=== PATIENT | male | born 1965 | race Two or more races ===

== ENCOUNTER 2020-12-16 19:49 | Inpatient (IN) | payer MEDICAID, SELFPAY ==
--- NOTE | 2020-12-16 19:57 | ED_ITS ---
HPI - General Adult General Chief complaint: General Medical Stated complaint: HYPERGLYCEMIA Time Seen by Provider: 12/16/20 19:56 Source: patient and family Mode of arrival: ambulatory Limitations: no limitations History of Present Illness HPI narrative: Patient diabetic noncompliant to his Lantus insulin in the ev ening suppose to take 30 units every day but he take only 3 times a week, on metformin 1000 mg twice daily.for last few days feeling weak urinating a lot tired went to see primary care doctor in the clinic today and blood sugar measured above 550. Patient denied any chest pain abdominal pain no nausea no vomiting no diarrhea patient does not have glucometer at home and does not check his sugar noncompliant to diet and does no exercise Related Data Home Medications Medication Instructions Recorded Confirmed albuterol sulfate 3 ml INHALATION Q4H PRN 12/16/20 12/16/20 albuterol sulfate [ProAir HFA] 2 puff INHALATION QID PRN 12/16/20 12/16/20 amlodipine 1 tab PO DAILY 12/16/20 12/16/20 aspirin 1 tab PO DAILY 12/16/20 12/16/20 cholecalciferol (vitamin D3) 1 cap PO DAILY 12/16/20 12/16/20 [Vitamin D3] lisinopril 1 tab PO DAILY 12/16/20 12/16/20 metformin 1 tab PO BID 12/16/20 12/16/20 omeprazole 1 cap PO DAILY 12/16/20 12/16/20 Allergies Allergy/AdvReac Type Severity Reaction Status Date / Time No Known Allergies Allergy Verified 12/16/20 20:20 Review of Systems Review of Systems: Constitutional : No Weight loss, No Fever, No Chills ENT/Mouth : No sore throat, No Rhinorrhea Eyes: No Eye Pain, No Swelling Cardiovascular : No Chest Pain, no palpitations Respiratory : No Cough, No Sputum, no shortness of breath Gastrointestinal : no Nausea, No Vomiting, No Diarrhea, No abdominal Pain, no black stools Genitourinary : No Dysuria, No Urinary Frequency Musculoskeletal : No joint pain, No Myalgias, No Joint Swelling Skin : No Skin Lesions, No rash Neuro : ++Weakness, No Numbness, No Dizziness, No Headache Psych : No Anxiety/Panic, No Depression Heme/Lymph: No Bruising, No Lymphadenopathy Endocrine : No Polyuria, No Polydipsia All other systems reviewed and are negative PMFSH Past Medical History Medical History Diabetes mellitus Surgical History No history of previous surgery Social History Social History Smoking Status: Current every day smoker Use of substances other than those prescribed or required for medical reasons: No Advance Directives: No Advance Directives Information Provided: Yes Physical Exam Vital Signs: Vital Signs: Last Vital Signs Temp 98.5 F 12/16/20 22:30 Pulse 107 H 12/17/20 00:58 Resp 13 12/17/20 00:58 BP 130/74 12/17/20 00:58 Pulse Ox 98 12/17/20 00:58 Body Mass Index 32.6 Appearance: Alert. Oriented X3. No acute distress. Eyes: Pupils equal, round and reactive to light. ENT: Pharynx normal. Oral mucosa dry Neck: Normal inspection. Neck supple. CVS: Normal heart rate and rhythm. Pulses normal. Respiratory: No respiratory distress. Breath sounds normal. Abdomen: Soft and nontender. Bowel sounds are present, no mass palpable, no CVA tenderness Skin: Skin warm and dry. Normal skin color. Normal skin turgor. Extremities: No lower extremity edema. Neuro: Oriented X 3. No motor deficit. No sensory deficit. Medical Decision Making MDM Narrative Medical decision making narrative: Patient diabetic with poor compliance came with increased blood sugar of 776 with acute renal failure creatinine increased from 1.27 in 09/16 to 3.96 now will give IV fluids insulin , plan to admit for acute renal failure with hyperglycemia Repeat chemistries pending patient received 2 L of fluid and insulin Chemistry improved with anion gap of 17 sodium 132 blood sugar 465, last blood sugar was 432 Will give 10 units of Humalog patient admitted to the medical floor Lab Data Lab results reviewed: Yes I reviewed the patient's lab results. Result diagrams: 12/16/20 20:33 12/17/20 01:15 Labs: Lab Results 12/16/20 12/16/20 12/16/20 Range/Units 20:09 20:33 20:33 WBC 9.3 (4.8-10.8) X10*3/uL RBC 4.78 (4.60-5.80) X10*6/uL Hgb 13.6 L (14.0-18.0) g/dl Hct 39.3 L (42-52) % MCV 82.2 (80-98) fL MCH 28.5 (27.0-33.0) pg MCHC 34.6 (31.0-36.0) g/dl RDW 13.3 (11.0-16.0) % Plt Count 170 (160-400) X10*3/uL MPV 11.7 (9.4-12.4) fL Immature Gran % (Auto) 0.2 (0.0-0.4) % Neut % (Auto) 86.7 H (45-73) % Lymph % (Auto) 8.1 L (20-40) % [place] % (Auto) 4.1 (2-11) % Eos % (Auto) 0.5 (0-4) % Baso % (Auto) 0.4 (0-2) % Lymph # (Auto) 0.8 L (1.2-4.9) X10*3/uL [place] # (Auto) 0.4 (0.1-1.2) X10*3/uL Eos # (Auto) 0.1 (0.0-0.4) X10*3/uL Baso # (Auto) 0.0 (0.0-0.2) X10*3/uL Abs Immat Gran (auto) 0.02 (0.00-0.03) X10*3/uL Absolute Neuts (auto) 8.1 (2.0-8.3) X10*3/uL Absolute Nucleated RBC 0.000 (0.0-0.012) X10*3/uL Nucleated RBC % (auto) 0.0 (0.0-0.2) /100WBC Sodium (135-145) mmol/L Potassium (3.3-5.1) mmol/L Chloride (96-108) mmol/L Carbon Dioxide (22-29) mmol/L Anion Gap (12-20) BUN (9-16) mg/dL Creatinine (0.5-1.4) mg/dL Estim Creat Clear Calc Estimated GFR POC Glucose > 600 H* (60-115) mg/dL Random Glucose (60-115) mg/dL Calcium (8.4-10.2) mg/dL Total Bilirubin (0.0-1.0) mg/dL Direct Bilirubin (0.0-0.5) mg/dL AST (5-37) U/L ALT (0-40) U/L Alkaline Phosphatase (39-117) U/L Total Protein (6.5-8.0) g/dL Albumin (3.5-5.0) g/dL Acetone, Qual Small H (Negative) 12/16/20 12/16/20 Range/Units 20:33 22:14 WBC (4.8-10.8) X10*3/uL RBC (4.60-5.80) X10*6/uL Hgb (14.0-18.0) g/dl Hct (42-52) % MCV (80-98) fL MCH (27.0-33.0) pg MCHC (31.0-36.0) g/dl RDW (11.0-16.0) % Plt Count (160-400) X10*3/uL MPV (9.4-12.4) fL Immature Gran % (Auto) (0.0-0.4) % Neut % (Auto) (45-73) % Lymph % (Auto) (20-40) % [place] % (Auto) (2-11) % Eos % (Auto) (0-4) % Baso % (Auto) (0-2) % Lymph # (Auto) (1.2-4.9) X10*3/uL [place] # (Auto) (0.1-1.2) X10*3/uL Eos # (Auto) (0.0-0.4) X10*3/uL Baso # (Auto) (0.0-0.2) X10*3/uL Abs Immat Gran (auto) (0.00-0.03) X10*3/uL Absolute Neuts (auto) (2.0-8.3) X10*3/uL Absolute Nucleated RBC (0.0-0.012) X10*3/uL Nucleated RBC % (auto) (0.0-0.2) /100WBC Sodium 122 L (135-145) mmol/L Potassium 5.7 H (3.3-5.1) mmol/L Chloride 90 L (96-108) mmol/L Carbon Dioxide 18 L (22-29) mmol/L Anion Gap 20 (12-20) BUN 72 H (9-16) mg/dL Creatinine 3.96 H (0.5-1.4) mg/dL Estim Creat Clear Calc 24.6 Estimated GFR 16 POC Glucose > 600 H* (60-115) mg/dL Random Glucose 776 H* (60-115) mg/dL Calcium 9.8 (8.4-10.2) mg/dL Total Bilirubin 1.5 H (0.0-1.0) mg/dL Direct Bilirubin 0.6 H (0.0-0.5) mg/dL AST 44 H (5-37) U/L ALT 73 H (0-40) U/L Alkaline Phosphatase 113 (39-117) U/L Total Protein 8.8 H (6.5-8.0) g/dL Albumin 4.4 (3.5-5.0) g/dL Acetone, Qual (Negative) Discharge Plan Discharge Clinical Impression: Hyperglycemia due to type 2 diabetes mellitus Qualifiers: Diabetes mellitus supervisor intermediates insulin use: with supervisor intermediates use Qualified Code(s): E11.65 - Type 2 diabetes mellitus with hyperglycemia Acute renal failure superimposed on chronic kidney disease Qualifiers: Acute renal failure type: unspecified Chronic kidney disease stage: stage 4 (severe) Qualified Code(s): N17.9 - Acute kidney failure, unspecified Patient Disposition: Admitted As Inpatient
--- NOTE | 2020-12-16 20:00 | ECG_ITS ---
Test Reason : HYPERGLYCEMIA Blood Pressure : / mmHG Vent. Rate : 093 BPM Atrial Rate : 093 BPM P-R Int : 120 ms QRS Dur : 096 ms QT Int : 342 ms P-R-T Axes : 055 -17 041 degrees QTc Int : 425 ms Normal sinus rhythm Possible inferior infarct Abnormal ECG When compared with ECG of 25-AUG-2016 03:00, No significant change was found Referred By: Efrem Thompson Electronically Signed By:Bipin Grove
[2020-12-16 20:11] VITALS: BP 115/59; BP 96/64; PULSE 95; PULSE 98; RESP 15; TEMP 36; O2SAT 96; O2SAT 99; BMI 32.6
[2020-12-16] MEDS: 0.9 % Sodium Chloride 1,000 ML 999 ML IVCONT ×2 (20:30→22:42)
[2020-12-16 20:38] VITALS: BP 115/59; PULSE 95; RESP 15; TEMP 36.4; O2SAT 99
[2020-12-16 20:38] LABS: Glucose, Whole Blood > 600 mg/dL (60-115)
[2020-12-16 20:40] LABS: Basophils Percent Auto 0.4 % (0-2); Eosinophils Absolute Auto 0.1 X10*3/uL (0.0-0.4); Eosinophils Percent Auto 0.5 % (0-4); Hematocrit 39.3 % (42-52); Hemoglobin 13.6 g/dl (14.0-18.0); Imm Gran Abs Auto 0.02 X10*3/uL (0.00-0.03); Imm Gran Pct Auto 0.2 % (0.0-0.4); Lymphocytes Absolute Auto 0.8 X10*3/uL (1.2-4.9); Lymphocytes Percent Auto 8.1 % (20-40); MANUAL DIFF FLAG NO; Mean Corpuscular HGB Conc 34.6 g/dl (31.0-36.0); Mean Corpuscular Hemoglobin 28.5 pg (27.0-33.0); Mean Corpuscular Volume 82.2 fL (80-98); Mean Platelet Volume 11.7 fL (9.4-12.4); Monocytes Absolute Auto 0.4 X10*3/uL (0.1-1.2); Monocytes Percent Auto 4.1 % (2-11); Neutrophils Absolute Auto 8.1 X10*3/uL (2.0-8.3); Neutrophils Percent Auto 86.7 % (45-73); Platelet Count 170 X10*3/uL (160-400); Red Blood Count 4.78 X10*6/uL (4.60-5.80); Red Cell Distribution Width 13.3 % (11.0-16.0); White Blood Count 9.3 X10*3/uL (4.8-10.8)
[2020-12-16] MEDS: Insulin Lispro 100 UNIT/ML 3 ML VIAL 14 UNIT SUBCUT (21:06)
[2020-12-16 21:20] LABS: Acetone, serum QL Small (Negative)
[2020-12-16 21:24] LABS: Alanine Aminotransferase 73 U/L (0-40); Albumin Level 4.4 g/dL (3.5-5.0); Alkaline Phosphatase 113 U/L (39-117); Anion Gap 20 (12-20); Aspartate Amino Transferase 44 U/L (5-37); Bilirubin Direct 0.6 mg/dL (0.0-0.5); Bilirubin Total 1.5 mg/dL (0.0-1.0); Blood Urea Nitrogen 72 mg/dL (9-16); Calcium 9.8 mg/dL (8.4-10.2); Carbon Dioxide 18 mmol/L (22-29); Chloride 90 mmol/L (96-108); Creatinine Clr Calc Pharmacy 24.6; Estimated Glomerular Filt Rate 16; Glucose Random 776 mg/dL (60-115); Potassium 5.7 mmol/L (3.3-5.1); Sodium 122 mmol/L (135-145); Total Protein 8.8 g/dL (6.5-8.0)
[2020-12-16 22:26] LABS: Glucose, Whole Blood > 600 mg/dL (60-115)
[2020-12-16 22:30] VITALS: BP 128/72; PULSE 108; RESP 14; TEMP 36.9; O2SAT 97
[2020-12-16] MEDS: Insulin Regular, Human 100 UNIT/ML 3 ML VIAL 10 UNIT IVPUSH (22:49)
[2020-12-16] MEDS: ondansetron HCL 4 MG/2 ML VIAL IVPUSH (22:49)
[2020-12-16] MEDS: Insulin Glargine,Hum.rec.anlog 100 UNIT/ML 10 ML VIAL 30 UNIT SUBCUT (22:50)
[2020-12-17 00:58] VITALS: BP 130/74; PULSE 107; RESP 13; O2SAT 98
[2020-12-17 01:44] LABS: Glucose, Whole Blood 432 mg/dL (60-115)
[2020-12-17 01:55] LABS: Glucose Random 465 mg/dL (60-115)
[2020-12-17 02:01] LABS: Anion Gap 17 (12-20); Blood Urea Nitrogen 65 mg/dL (9-16); Calcium 9.3 mg/dL (8.4-10.2); Carbon Dioxide 19 mmol/L (22-29); Chloride 101 mmol/L (96-108); Creatinine Clr Calc Pharmacy 31.7; Estimated Glomerular Filt Rate 21; Potassium 5.3 mmol/L (3.3-5.1); Sodium 132 mmol/L (135-145)
[2020-12-17] MEDS: Heparin Sodium,Porcine 5,000 UNIT/ML VIAL 5000 UNIT SUBCUT ×2 (02:48→12:50)
[2020-12-17] MEDS: Insulin Regular, Human 100 UNIT/ML 3 ML VIAL 10 UNIT IVPUSH (02:48)
--- NOTE | 2020-12-17 02:50 | PC.NURSE ---
Patient resting in his bed with daughter at the bedside. R insulin administration delayed because order needed to be clarified with hospitalist as there were two orders.
[2020-12-17 02:52] LABS: COVID-19 Test Negative (Negative)
[2020-12-17] MEDS: Insulin Lispro 100 UNIT/ML 3 ML VIAL 10 UNIT SUBCUT (03:22)
[2020-12-17 04:07] LABS: Glucose, Whole Blood 314 mg/dL (60-115)
[2020-12-17] MEDS: Lactated Ringers 500 ML 1000 ML IVCONT (04:25)
--- NOTE | 2020-12-17 06:08 | P.HPHOSP_ITS ---
History of Present Illness Date of Service: 12/17/20 Chief Complaint: not feeling well Citizen [place]-speaking only. History obtained with history of his daughter at bedside 55-year-old male with past medical history of diabetes, hypertension, GERD, arthritis, asthma who presents to the hospital with complaints of not feeling well for for 5 days, low appetite, increase urinary frequency and feeling thirsty all the time. Patient has diabetes and is on Lantus and metformin but reports that he does not take his Lantus consistently because he is lazy and forgets but he takes metformin 1000 mg b.i.d. consistently. He denies any headache, change in vision, no chest pain shortness of breath, no diarrhea constipation, no abdominal pain. No urinary symptoms other than the frequency, and no lower extremity edema. No numbness or tingling. Vitals on arrival unremarkable Labs on arrival showed WBC count of 9.3, hemoglobin of 13.6, hematocrit 39.3, corrected sodium of 136, potassium of 5.7, anion gap 20, BUN of 72, creatinine of 3.96 with a baseline around 1.27 from August of 2019, glucose of 776, bili of 1.5, AST of 44, ALT of 73, small amount of acetone. COVID-19 negative Past medical history as below and confirmed with patient and his daughter at bedside Review of Systems Review of Systems: Yes all other systems are reviewed and are negative [facility] Medical History Asthma Diabetes mellitus GERD (gastroesophageal reflux disease) Hypertension Functional capacity: independent ambulation Surgical History No history of previous surgery Social History Smoking Status: Current every day smoker Use of substances other than those prescribed or required for medical reasons: No Advance Directives: No Advance Directives Information Provided: Yes Meds Allergies Allergy/AdvReac Type Severity Reaction Status Date / Time No Known Allergies Allergy Verified 12/16/20 20:20 Active Medications: Current Medications Generic Name Dose Route Start Last Admin Trade Name Freq PRN Reason Stop Dose Admin Acetaminophen 650 mg 12/17/20 00:58 Acetaminophen 325 Mg Tablet PO Q6H PRN Pain, Mild (Pain Scale 1-3) Albuterol Sulfate 2.5 mg 12/17/20 00:58 Albuterol Sulfate (0.083%) 2.5 Mg/3 Ml Vial.Neb INHALE Q4H PRN wheezing Albuterol Sulfate 2 puff 12/17/20 00:58 Albuterol Sulfate 90 Mcg 8 Gm Inhaler INHALE QID PRN Shortness Of Breath Or Wheezing Amlodipine Besylate 5 mg 12/17/20 09:00 Amlodipine Besylate 5 Mg Tablet PO DAILY [facility] Protocol Aspirin 81 mg 12/17/20 09:00 Aspirin Enteric Coated 81 Mg Tablet. PO DAILY [facility] Docusate Sodium 100 mg 12/17/20 00:58 Docusate Sodium 100 Mg Capsule PO DAILY PRN Constipation Heparin Sodium (Porcine) 5,000 unit 12/17/20 00:58 12/17/20 02:48 Heparin Sodium,Porcine 5,000 Unit/Ml Vial SUBCUT 5,000 unit Q12H [facility] Administration Insulin Human Lispro 0 unit 12/17/20 07:30 Insulin Lispro 100 Unit/Ml 3 Ml Vial SUBCUT QIDACHS [facility] Protocol Lisinopril 40 mg 12/17/20 09:00 Lisinopril 40 Mg Tablet PO DAILY [facility] Protocol Omeprazole 20 mg 12/17/20 09:00 Omeprazole 20 Mg Capsule. PO DAILY [facility] Ondansetron HCl 4 mg 12/17/20 00:58 Ondansetron Hcl 4 Mg/2 Ml Vial IVPUSH Q8H PRN Nausea and Vomiting Sodium Chloride 3 ml 12/17/20 08:00 0.9 % Sodium Chloride Flush 3 M[facility] Vitamin D 50 mcg 12/17/20 09:00 Cholecalciferol (Vitamin D3) 25 Mcg Tablet PO DAILY [facility] Home Medications Medication Instructions Recorded Confirmed Last Taken Type albuterol sulfate 3 ml INHALATION Q4H PRN 12/16/20 12/16/20 Unknown History albuterol sulfate [ProAir HFA] 2 puff INHALATION QID PRN 12/16/20 12/16/20 Unknown History amlodipine 1 tab PO DAILY 12/16/20 12/16/20 Unknown History aspirin 1 tab PO DAILY 12/16/20 12/16/20 Unknown History cholecalciferol (vitamin D3) 1 cap PO DAILY 12/16/20 12/16/20 Unknown History [Vitamin D3] lisinopril 1 tab PO DAILY 12/16/20 12/16/20 Unknown History metformin 1 tab PO BID 12/16/20 12/16/20 Unknown History omeprazole 1 cap PO DAILY 12/16/20 12/16/20 Unknown History Physical Exam Vital Signs and Narrative: Vital Signs: Last Vital Signs Temp 98.5 F 12/16/20 22:30 Pulse 107 H 12/17/20 00:58 Resp 13 12/17/20 00:58 BP 130/74 12/17/20 00:58 Pulse Ox 98 12/17/20 00:58 Body Mass Index 32.6 Const: General: cooperative and no acute distress Orientation/consciousness: patient oriented x3 Eyes: General: appearance normal, both eyes and all related structures Resp: Effort & Inspection: normal respiratory effort and able to speak in complete sentences Cardio: Rate: regular rate Rhythm: regular rhythm GI: Palpation (GI): Soft to palpation Auscultation: normal bowel sounds Skin: General skin exam: no rashes or lesions noted Neuro: General: patient oriented x3 Cognition (Neuro): normal cognition Extrem: General: Yes normal to inspection and Yes no pedal edema Results Labs CBC and Chem 7: 12/16/20 20:33 12/17/20 01:15 Labs: Laboratory Results - last 24 hr 12/16/20 12/16/20 12/16/20 20:09 20:33 20:33 MCV 82.2 MCH 28.5 MCHC 34.6 RDW 13.3 Plt Count 170 MPV 11.7 Immature Gran % (Auto) 0.2 Neut % (Auto) 86.7 H Lymph % (Auto) 8.1 L [place] % (Auto) 4.1 Eos % (Auto) 0.5 Baso % (Auto) 0.4 Lymph # (Auto) 0.8 L [place] # (Auto) 0.4 Eos # (Auto) 0.1 Baso # (Auto) 0.0 Abs Immat Gran (auto) 0.02 Absolute Neuts (auto) 8.1 Absolute Nucleated RBC 0.000 Nucleated RBC % (auto) 0.0 Anion Gap Estim Creat Clear Calc Estimated GFR POC Glucose > 600 H* Random Glucose Calcium Total Bilirubin Direct Bilirubin AST ALT Alkaline Phosphatase Total Protein Albumin Acetone, Qual Small H COVID-19 ([facility]ODRIGO) COVID-19 Clin Com 04/12/16/20 12/17/20 20:33 22:14 01:15 MCV MCH MCHC RDW Plt Count MPV Immature Gran % (Auto) Neut % (Auto) Lymph % (Auto) [place] % (Auto) Eos % (Auto) Baso % (Auto) Lymph # (Auto) [place] # (Auto) Eos # (Auto) Baso # (Auto) Abs Immat Gran (auto) Absolute Neuts (auto) Absolute Nucleated RBC Nucleated RBC % (auto) Anion Gap 20 17 Estim Creat Clear Calc 24.6 31.7 Estimated GFR 16 21 POC Glucose > 600 H* Random Glucose 776 H* TNP Calcium 9.8 9.3 Total Bilirubin 1.5 H Direct Bilirubin 0.6 H AST 44 H ALT 73 H Alkaline Phosphatase 113 Total Protein 8.8 H Albumin 4.4 Acetone, Qual COVID-19 ([facility]IGO) COVID-19 Clin Com 12/17/20 12/17/20 12/17/20 01:15 01:41 02:22 MCV MCH MCHC RDW Plt Count MPV Immature Gran % (Auto) Neut % (Auto) Lymph % (Auto) [place] % (Auto) Eos % (Auto) Baso % (Auto) Lymph # (Auto) [place] # (Auto) Eos # (Auto) Baso # (Auto) Abs Immat Gran (auto) Absolute Neuts (auto) Absolute Nucleated RBC Nucleated RBC % (auto) Anion Gap Estim Creat Clear Calc Estimated GFR POC Glucose 432 H* Random Glucose 465 H* Calcium Total Bilirubin Direct Bilirubin AST ALT Alkaline Phosphatase Total Protein Albumin Acetone, Qual COVID-19 (RODRIGO) Negative COVID-19 Clin Com See Note 12/17/20 04:00 MCV MCH MCHC RDW Plt Count MPV Immature Gran % (Auto) Neut % (Auto) Lymph % (Auto) [place] % (Auto) Eos % (Auto) Baso % (Auto) Lymph # (Auto) [place] # (Auto) Eos # (Auto) Baso # (Auto) Abs Immat Gran (auto) Absolute Neuts (auto) Absolute Nucleated RBC Nucleated RBC % (auto) Anion Gap Estim Creat Clear Calc Estimated GFR POC Glucose 314 H Random Glucose Calcium Total Bilirubin Direct Bilirubin AST ALT Alkaline Phosphatase Total Protein Albumin Acetone, Qual COVID-19 ([facility]ODRIGO) COVID-19 Clin Com Assessment and Plan (1) Hyperglycemia due to type 2 diabetes mellitus: Qualifiers: Diabetes mellitus longterm insulin use: with longterm use Qualified Code(s): E11.65 - Type 2 diabetes mellitus with hyperglycemia; Z79.4 - correction (current) use of insulin Status: Acute (2) Acute renal failure superimposed on chronic kidney disease: Qualifiers: Acute renal failure type: unspecified Chronic kidney disease stage: stage 4 (severe) Qualified Code(s): N17.9 - Acute kidney failure, unspecified; N18.4 - Chronic kidney disease, stage 4 (severe) Status: Acute 55-year-old male with past medical history of diabetes and hypertension presents to the hospital with hyperglycemia # hyperglycemia secondary to poorly controlled diabetes mellitus - presents with a glucose of 700s - no DKA, mild HHS - patient responded to subcu an IV insulin - patient on 20 units of insulin Lantus at bedtime but has been noncompliant - on metformin 1000 mg b.i.d. at home - at this time will start him on his home Lantus of 20 mg at bedtime - obtain hemoglobin A1c - low-dose sliding scale insulin - diabetic diet # Doni on CKD - most likely dehydration as well as progression of his kidney disease secondary to uncontrolled diabetes - will start on IV fluids - diabetic diet # hypertension - stable - continue amlodipine and lisinopril # asthma - no exacerbation - continue home inhalers # GERD - continue omeprazole DVT prophylaxis: heparin Subq
[2020-12-17 06:42] LABS: Glucose, Whole Blood 173 mg/dL (60-115)
--- NOTE | 2020-12-17 06:50 | PC.NURSE ---
Patient's blood sugar was 173 this am. Hospitalist notified of results.
[2020-12-17] MEDS: Lactated Ringers 1,000 ML 100 ML IVCONT (07:35)
[2020-12-17 07:36] VITALS: BP 130/74; BP 135/74; PULSE 100; PULSE 107
[2020-12-17] MEDS: Aspirin Enteric Coated 81 MG TABLET.DR PO (07:36)
[2020-12-17] MEDS: lisinopriL 40 MG TABLET PO (07:36)
[2020-12-17] MEDS: Cholecalciferol (Vitamin D3) 25 MCG TABLET 50 MCG PO (07:36)
[2020-12-17] MEDS: amLODIPine Besylate 5 MG TABLET PO (07:36)
[2020-12-17 07:37] LABS: Glucose, Whole Blood > 600 mg/dL (60-115)
[2020-12-17 07:37] LABS: Glucose, Whole Blood > 600 mg/dL (60-115)
[2020-12-17] MEDS: Omeprazole 20 MG CAPSULE.DR PO (07:37)
[2020-12-17] MEDS: Insulin Lispro 100 UNIT/ML 3 ML VIAL SUBCUT ×4 (07:37→21:11)
[2020-12-17] MEDS: 0.9 % Sodium Chloride 1,000 ML 999 ML IVCONT (07:50)
[2020-12-17 09:59] LABS: Hemoglobin A1c % > 14.0 %
[2020-12-17 11:46] LABS: Glucose, Whole Blood 172 mg/dL (60-115)
--- NOTE | 2020-12-17 13:14 | MHC.CM.PN ---
Met with patient and historic interpreter in regards to discharge planning. Patient lives with his son and daughter, ambulates independently and had no services prior to coming to the hospital. Patient still drives. No services anticipated to be needed because patient is not homebound. PCP verified. Patient denies having a HCP. Information provided. Patient not interested in completing one at this time. Patient's daughter will transport him home when medically stable. Continue to monitor for d/c needs.
--- NOTE | 2020-12-17 14:45 | PC.NURSE ---
PT NEEDS BEING MET, TOLERATING PO. AMB TO BR WITH STEADY GAIT, WAITING ON ADMISSION BED
[2020-12-17 16:06] VITALS: BP 120/80; PULSE 84; RESP 14; O2SAT 99
[2020-12-17] MEDS: 0.9 % Sodium Chloride Flush 3 ML SYRINGE IVFLUSH ×2 (16:06→21:12)
[2020-12-17 16:37] LABS: Anion Gap 13 (12-20); Blood Urea Nitrogen 47 mg/dL (9-16); Calcium 9.3 mg/dL (8.4-10.2); Carbon Dioxide 21 mmol/L (22-29); Chloride 107 mmol/L (96-108); Estimated Glomerular Filt Rate 31; Glucose Random 277 mg/dL (60-115); Potassium 5.2 mmol/L (3.3-5.1); Sodium 136 mmol/L (135-145)
[2020-12-17 17:27] LABS: Glucose, Whole Blood 261 mg/dL (60-115)
[2020-12-17 19:33] VITALS: BP 158/82; PULSE 79; RESP 16; TEMP 36; O2SAT 99
[2020-12-17 20:21] LABS: Glucose, Whole Blood 271 mg/dL (60-115)
[2020-12-17] MEDS: Insulin Glargine,Hum.rec.anlog 100 UNIT/ML 10 ML VIAL 20 UNIT SUBCUT (21:11)
[2020-12-17 23:30] VITALS: BP 153/81; PULSE 81; RESP 20; TEMP 36.9; O2SAT 98
[2020-12-18] MEDS: Heparin Sodium,Porcine 5,000 UNIT/ML VIAL 5000 UNIT SUBCUT ×2 (00:26→11:48)
[2020-12-18 04:00] VITALS: BP 154/80; PULSE 69; RESP 20; TEMP 36.8; O2SAT 97
[2020-12-18 06:38] LABS: MANUAL DIFF FLAG NO
[2020-12-18 07:02] LABS: Basophils Percent Auto 0.7 % (0-2); Eosinophils Absolute Auto 0.1 X10*3/uL (0.0-0.4); Eosinophils Percent Auto 1.9 % (0-4); Hematocrit 36.9 % (42-52); Hemoglobin 12.5 g/dl (14.0-18.0); Imm Gran Abs Auto 0.01 X10*3/uL (0.00-0.03); Imm Gran Pct Auto 0.2 % (0.0-0.4); Lymphocytes Absolute Auto 1.4 X10*3/uL (1.2-4.9); Lymphocytes Percent Auto 23.2 % (20-40); Mean Corpuscular HGB Conc 33.9 g/dl (31.0-36.0); Mean Corpuscular Hemoglobin 28.2 pg (27.0-33.0); Mean Corpuscular Volume 83.1 fL (80-98); Mean Platelet Volume 11.2 fL (9.4-12.4); Monocytes Absolute Auto 0.3 X10*3/uL (0.1-1.2); Monocytes Percent Auto 4.6 % (2-11); Neutrophils Absolute Auto 4.1 X10*3/uL (2.0-8.3); Neutrophils Percent Auto 69.4 % (45-73); Platelet Count 167 X10*3/uL (160-400); Red Blood Count 4.44 X10*6/uL (4.60-5.80); Red Cell Distribution Width 13.5 % (11.0-16.0); White Blood Count 5.9 X10*3/uL (4.8-10.8)
[2020-12-18 07:20] LABS: Anion Gap 14 (12-20); Blood Urea Nitrogen 37 mg/dL (9-16); Calcium 9.5 mg/dL (8.4-10.2); Carbon Dioxide 19 mmol/L (22-29); Chloride 107 mmol/L (96-108); Creatinine Clr Calc Pharmacy 52.9; Estimated Glomerular Filt Rate 38; Glucose Random 236 mg/dL (60-115); Potassium 4.7 mmol/L (3.3-5.1); Sodium 135 mmol/L (135-145)
[2020-12-18 07:22] VITALS: BP 139/85; PULSE 75; RESP 18; TEMP 36.7; O2SAT 97
[2020-12-18] MEDS: Cholecalciferol (Vitamin D3) 25 MCG TABLET 50 MCG PO (07:54)
[2020-12-18] MEDS: amLODIPine Besylate 5 MG TABLET PO (07:54)
[2020-12-18] MEDS: 0.9 % Sodium Chloride Flush 3 ML SYRINGE IVFLUSH ×2 (07:54→16:13)
[2020-12-18] MEDS: lisinopriL 40 MG TABLET PO (07:54)
[2020-12-18] MEDS: Aspirin Enteric Coated 81 MG TABLET.DR PO (07:54)
[2020-12-18] MEDS: Omeprazole 20 MG CAPSULE.DR PO (07:54)
[2020-12-18] MEDS: Insulin Lispro 100 UNIT/ML 3 ML VIAL SUBCUT ×4 (07:54→21:34)
[2020-12-18 08:27] LABS: Glucose, Whole Blood 221 mg/dL (60-115)
--- NOTE | 2020-12-18 10:15 | P.PNIM_ITS ---
Subjective Subjective Date of Service: 12/18/20 Interval History: Seen in f/u for DONI, uncontrolled diabetes, better, Blood sugars have trended down and renal function is better Review of Systems Gen: no fever Resp: no sob, no cough CV: no chest, no GABRIEL, no leg edema GI: No n/v, no abd pain Neuro: No confusion Physical Exam Vital Signs: Vital Signs: Last Vital Signs Temp 98.0 F 12/18/20 07:22 Pulse 75 12/18/20 07:22 Resp 18 12/18/20 07:22 BP 139/85 12/18/20 07:22 Pulse Ox 97 12/18/20 07:22 Body Mass Index 32.6 Const: General: cooperative and no acute distress Orientation/consciousness : patient oriented x3 Eyes: General: appearance normal, both eyes and all related structures Resp: Effort & Inspection: normal respiratory effort and able to speak in complete sentences Cardio: Rate: regular rate Rhythm: regular rhythm GI: Palpation (GI): Soft to palpation Auscultation: normal bowel sounds Skin: General skin exam: no rashes or lesions noted Neuro: General: patient oriented x3 Cognition (Neuro): normal cognition Extrem: General: Yes normal to inspection and Yes no pedal edema Objective Data Current Medications Generic Name Dose Route Start Last Admin Trade Name Freq PRN Reason Stop Dose Admin Acetaminophen 650 mg 12/17/20 00:58 Acetaminophen 325 Mg Tablet PO Q6H PRN Pain, Mild (Pain Scale 1-3) Albuterol Sulfate 2.5 mg 12/17/20 00:58 Albuterol Sulfate (0.083%) 2.5 Mg/3 Ml Vial.Neb INHALE Q4H PRN wheezing Albuterol Sulfate 2 puff 12/17/20 00:58 Albuterol Sulfate 90 Mcg 8 Gm Inhaler INHALE QID PRN Shortness Of Breath Or Wheezing Amlodipine Besylate 5 mg 12/17/20 09:00 12/18/20 07:54 Amlodipine Besylate 5 Mg Tablet PO 5 mg DAILY [facility] Administration Protocol Aspirin 81 mg 12/17/20 09:00 12/18/20 07:54 Aspirin Enteric Coated 81 Mg Tablet. PO 81 mg DAILY [facility] Administration Docusate Sodium 100 mg 12/17/20 00:58 Docusate Sodium 100 Mg Capsule PO DAILY PRN Constipation Heparin Sodium (Porcine) 5,000 unit 12/17/20 00:58 12/18/20 00:26 Heparin Sodium,Porcine 5,000 Unit/Ml Vial SUBCUT 5,000 unit Q12H [facility] Administration Insulin Glargine 20 unit 12/17/20 21:00 12/17/20 21:11 Insulin Glargine,Hum.Rec.Anlog 100 Unit/Ml 10 Ml Vial SUBCUT 20 unit BEDTIME [facility] Administration Insulin Human Lispro 0 unit 12/17/20 07:30 12/18/20 07:54 Insulin Lispro 100 Unit/Ml 3 Ml Vial SUBCUT 4 unit QIDACHS [facility] Administration Protocol Lisinopril 40 mg 12/17/20 09:00 12/18/20 07:54 Lisinopril 40 Mg Tablet PO 40 mg DAILY [facility] Administration Protocol Omeprazole 20 mg 12/17/20 09:00 12/18/20 07:54 Omeprazole 20 Mg Capsule. PO 20 mg DAILY [facility] Administration Ondansetron HCl 4 mg 12/17/20 00:58 Ondansetron Hcl 4 Mg/2 Ml Vial IVPUSH Q8H PRN Nausea and Vomiting Sodium Chloride 3 ml 12/17/20 08:00 12/18/20 07:54 0.9 % Sodium Chloride Flush 3 Ml Syringe IVFLUSH 3 ml QSHIFT [facility] Administration Vitamin D 50 mcg 12/17/20 09:00 12/18/20 07:54 Cholecalciferol (Vitamin D3) 25 Mcg Tablet PO 50 mcg DAILY [facility] Administration Labs CBC & Chem 7: 12/18/20 06:28 12/18/20 06:28 Assessment and Plan (1) Hyperglycemia due to type 2 diabetes mellitus: Status: Acute (2) Acute renal failure superimposed on chronic kidney disease: Status: Acute Assessment and Plan: 55-year-old male with past medical history of diabetes and hypertension presents to the hospital with hyperglycemia # Hyperglycemia/uncontrolled diabetes without DKA--sugars are better -Hgb A1c >14 -Continue SSI -Increase Lantus to 30 tonight -Diabetes and Nutrition education -Hold Metformin until renal function is normal - diabetic diet # Doni on CKD 2, Creatinie is better -continue IVF and reacheck Cr tomorrow # hypertension - stable - continue amlodipine and lisinopril # asthma - no exacerbation - continue home inhalers # GERD - continue omeprazole DVT prophylaxis: heparin Subq Home tomorrow
[2020-12-18 11:26] VITALS: BP 134/79; PULSE 76; RESP 18; TEMP 36.7; O2SAT 97
[2020-12-18 12:05] LABS: Glucose, Whole Blood 272 mg/dL (60-115)
[2020-12-18 15:48] VITALS: BP 142/80; PULSE 70; RESP 18; TEMP 36.4; O2SAT 98
[2020-12-18 16:15] LABS: Glucose, Whole Blood 206 mg/dL (60-115)
[2020-12-18] MEDS: Nicotine Polacrilex 2 MG GUM BUCCAL (16:30)
[2020-12-18 19:28] VITALS: BP 136/70; PULSE 75; RESP 16; TEMP 36; O2SAT 100
[2020-12-18 20:41] LABS: Glucose, Whole Blood 222 mg/dL (60-115)
[2020-12-18] MEDS: Insulin Glargine,Hum.rec.anlog 100 UNIT/ML 10 ML VIAL 20 UNIT SUBCUT (21:34)
[2020-12-18 23:22] VITALS: BP 120/77; PULSE 85; RESP 18; TEMP 36.3; O2SAT 100
[2020-12-19] MEDS: 0.9 % Sodium Chloride Flush 3 ML SYRINGE IVFLUSH ×3 (00:43→17:10)
[2020-12-19] MEDS: Heparin Sodium,Porcine 5,000 UNIT/ML VIAL 5000 UNIT SUBCUT ×2 (01:44→14:40)
[2020-12-19 03:42] VITALS: BP 165/91; PULSE 68; RESP 16; TEMP 36.5; O2SAT 97
[2020-12-19 07:33] VITALS: BP 122/79; PULSE 79; RESP 17; TEMP 36.1; O2SAT 98
[2020-12-19 07:54] LABS: Glucose, Whole Blood 198 mg/dL (60-115)
[2020-12-19] MEDS: Aspirin Enteric Coated 81 MG TABLET.DR PO (08:17)
[2020-12-19] MEDS: Cholecalciferol (Vitamin D3) 25 MCG TABLET 50 MCG PO (08:17)
[2020-12-19] MEDS: Omeprazole 20 MG CAPSULE.DR PO (08:18)
[2020-12-19 08:19] VITALS: BP 122/79; PULSE 79
[2020-12-19] MEDS: lisinopriL 40 MG TABLET PO (08:19)
[2020-12-19] MEDS: amLODIPine Besylate 5 MG TABLET PO (08:19)
[2020-12-19] MEDS: Insulin Lispro 100 UNIT/ML 3 ML VIAL SUBCUT ×3 (08:21→17:09)
--- NOTE | 2020-12-19 10:18 | PM.DS ---
DS: Providers Provider Date of Service: 12/29/20 Date of admission: 12/17/20 00:38 Primary care physician: [facility] DS: Diagnosis Discharge Diagnosis (1) Hyperglycemia due to type 2 diabetes mellitus: Status: Acute (2) Acute renal failure superimposed on chronic kidney disease: Status: Acute DS: Medications Discharge Medications Home Medications: Home Medications Medication Instructions Recorded Confirmed albuterol sulfate 3 ml INHALATION Q4H PRN 12/16/20 12/16/20 albuterol sulfate [ProAir HFA] 2 puff INHALATION QID PRN 12/16/20 12/16/20 amlodipine 1 tab PO DAILY 12/16/20 12/16/20 aspirin 1 tab PO DAILY 12/16/20 12/16/20 cholecalciferol (vitamin D3) 1 cap PO DAILY 12/16/20 12/16/20 [Vitamin D3] lisinopril 1 tab PO DAILY 12/16/20 12/16/20 metformin 1 tab PO BIDAC 12/16/20 12/17/20 omeprazole 1 cap PO DAILY 12/16/20 12/16/20 insulin glargine [Lantus Solostar 30 unit SUBCUT BEDTIME 12/17/20 12/17/20 U-100 Insulin] DS: Summary Hospital Course Hospital Course: Chief Complaint: not feeling well Wallisian-speaking only. History obtained with history of his daughter at bedside 55-year-old male with past medical history of diabetes, hypertension, GERD, arthritis, asthma who presents to the hospital with complaints of not feeling well for for 5 days, low appetite, increase urinary frequency and feeling thirsty all the time. Patient has diabetes and is on Lantus and metformin but reports that he does not take his Lantus consistently because he is lazy and forgets but he takes metformin 1000 mg b.i.d. consistently. He denies any headache, change in vision, no chest pain shortness of breath, no diarrhea constipation, no abdominal pain. No urinary symptoms other than the frequency, and no lower extremity edema. No numbness or tingling. Vitals on arrival unremarkable Labs on arrival showed WBC count of 9.3, hemoglobin of 13.6, hematocrit 39.3, corrected sodium of 136, potassium of 5.7, anion gap 20, BUN of 72, creatinine of 3.96 with a baseline around 1.27 from August of 2019, glucose of 776, bili of 1.5, AST of 44, ALT of 73, small amount of acetone. COVID-19 negative Hospital coruse: He presented with not feeling good and not being consitent with his insulin and other medication, and had decrease apetite and decrease water intake. Labs showed high potassium of 5.7, Creatinine of 3.96 and glucose over 776. He was agresivelly hydrated starting from emergency room to treat acute renal failure and hyperglycemia. He required insulin for hyperglycemia. Ultimately his sugar levels have come down presently at 261. His renal function has improved, creatinine is presently ? He does have underlying CKD 2, and last labs date back last year. Creatinine seems to have stablized aroud 1.8, even with use of Lisinopril. Patient is advised that he must be compliant with his medication, particulary insulin and to check blood sugars before meals and at bedtime, to stick with diabetic diet and follow PCP. To stop taking Metformin and Sliding scale insulin added. His daughter confirmed that he has all his medication at home and need renewal for Lisinopril and inhlaers. Will repeat BMP in a week Time Spent with Patient Time attestation: Total time spent providing and/or coordinating discharge services: Discharge coordination time: Greater than 30 minutes Physical Exam Vital Signs: Vital Signs: Last Vital Signs Temp 96.9 F 12/19/20 07:33 Pulse 79 12/19/20 08:19 Resp 17 12/19/20 07:33 BP 122/79 12/19/20 08:19 Pulse Ox 98 12/19/20 07:33 Body Mass Index 32.6 General: AO X 3, no acute distress Resp: CTA bilateral CVS: S1,S2,RRR GI: +BS, NT, no distention Skin: No rash Neuro: motor grossly intact Psych: appropriate affect DS: Data Data Completed and Pending Labs on day of discharge: Laboratory Results - last 24 hr 12/18/20 12/18/20 12/18/20 11:25 16:11 20:36 POC Glucose 272 H 206 H 222 H 12/19/20 07:35 POC Glucose 198 H Discharge Plan Discharge Anticipated Discharge Date/Time: 12/19/20 10:12 Patient Disposition: Home, Self-Care Discharge Diagnosis: Acute renal failure, and uncontrolled diabetes Referrals: [facility] [Primary Care Provider] - 1 Week Discharge Medications: New insulin lispro [Humalog KwikPen Insulin] 100 unit/mL insulin pen See Protocol unit subcut QIDACHS Qty: 15 RF: 0 (DME) pen needle, diabetic [BD Eliz 2nd Gen Pen Needle] 32 gauge x 5/32 needle See Rx Instructions .ROUTE .MEDSUPPLY Qty: 100 RF: 0 (DME) blood-glucose meter [FreeStyle Lite Meter] Kit See Rx Instructions .ROUTE .MEDSUPPLY Qty: 1 RF: 0 (DME) FreeStyle Lite Strips Strip See Rx Instructions .ROUTE .MEDSUPPLY Qty: 100 RF: 0 (DME) lancets [1st Tier Unilet ComforTouch] 28 gauge misc See Rx Instructions .ROUTE .MEDSUPPLY Qty: 100 RF: 0 Continued amlodipine 5 mg tablet 1 tab PO DAILY RF: 0 aspirin 81 mg tablet,delayed release (DR/EC) 1 tab PO DAILY RF: 0 omeprazole 20 mg capsule,delayed release(DR/EC) 1 cap PO DAILY RF: 0 cholecalciferol (vitamin D3) [Vitamin D3] 50 mcg (2,000 unit) capsule 1 cap PO DAILY RF: 0 Lantus Solostar U-100 Insulin 100 unit/mL (3 mL) insulin pen 30 unit subcut BEDTIME RF: 0 albuterol sulfate 2.5 mg /3 mL (0.083 %) solution for nebulization 3 ml inhalation Q4H PRN (Reason: wheezing) Qty: 60 RF: 0 albuterol sulfate [ProAir HFA] 90 mcg/actuation HFA aerosol inhaler 2 puff inhalation QID PRN (Reason: Shortness Of Breath Or Wheezing) Qty: 1 RF: 0 lisinopril 40 mg tablet 1 tab PO DAILY Qty: 30 RF: 0 Discontinued metformin 500 mg tablet 1 tab PO BIDAC RF: 0 Discharge Orders: Discharge Order (Routine); Ordered 12/19/20 Ordered By: Lopez Fuentes Diet: advance to usual diet and diabetic diet Activity on Discharge: As tolerated Stand Alone Forms: Patient Portal Discharge page Print Language: Malawian Other Ambulatory Orders: Basic Metabolic Panel (Routine) Timeframe: 1 Week Facility: [facility] - Location: Laboratory Ordered By: Lopez Fuentes Care Plan Goals: Diabetes management and prevent hospitalization Health Concerns: Diabetes and its potential complications., renal failure Plan of Treatment: To take insulin and all other medication as directed and follow up with her primary care doctor. Do not take metformin anymore insulin correction scale *Less than or equal to 110 ---- Give (units): 0 *111 to 150 Give (units): 0 *151 to 200 Give (units): 2 *201 to 250 Give (units): 4 *251 to 300 Give (units): 6 *301 to 350 Give (units): 8 *Greater than 350 Give (units): 10 *Call MD if Blood Glucose > : 350 Assessment: Uncontrolled diabetes, renal failure Discharge Date/Time: 12/19/20 18:08
[2020-12-19 11:12] VITALS: BP 129/76; PULSE 79; RESP 18; TEMP 36.2; O2SAT 98
[2020-12-19 11:46] LABS: Glucose, Whole Blood 285 mg/dL (60-115)
[2020-12-19 12:24] LABS: Anion Gap 15 (12-20); Blood Urea Nitrogen 29 mg/dL (9-16); Calcium 10.2 mg/dL (8.4-10.2); Carbon Dioxide 23 mmol/L (22-29); Chloride 102 mmol/L (96-108); Creatinine Clr Calc Pharmacy 52.9; Estimated Glomerular Filt Rate 38; Glucose Random 317 mg/dL (60-115); Potassium 4.8 mmol/L (3.3-5.1); Sodium 135 mmol/L (135-145)
[2020-12-19 15:21] VITALS: BP 116/71; PULSE 80; RESP 16; TEMP 36; O2SAT 96
--- NOTE | 2020-12-19 15:58 | MHC.CM.PN ---
Addendum entered by Radha Waldron RN 12/19/20 16:13: CM CONTACTED PT'S DAUGHTER BELKIS NEAL AT 4:05PM TO FIND OUT IF PT HAD A GLUCOMETER, LANCETS AND TEST STRIPS, PER DAUGHTER PT NO LONGER HAS A GLUCOMETER OR SUPPLIES, INFO FOR FREESTYLE GLUCOMETER KIT, TEST STRIPS AND LANCETS GIVEN TO HOSPITALIST. Original Note: PT DISCHARGING TODAY, HOME SELF-CARE W/NEW SLIDING SCALE INSULIN, PT ON LANTUS SOLASTAR PEN, INFO GIVEN TO HOSPITALIST FOR HUMALOG KWIKPEN U-100, 3ML PEN AND BD MARIO 2ND GEN PEN NEEDLES 4MM/32 GAUGE 4XDAY 1 BOX PER PT PHARMACY ON FILE. DAUGHTER TO TRANSPORT.
[2020-12-19 16:36] LABS: Glucose, Whole Blood 250 mg/dL (60-115)
== END 2020-12-19 18:08 | disposition home or self-care (01) | DRG 420 ==
LOC: HO.ED 20:16 → HO.EDOVER 12-17 00:56 → HO.S3 12-17 18:23
PROVIDERS: Admitting Provider Internal Medicine; Emergency Provider Internal Medicine; Visit Provider Internal Medicine
DX: E11.65 Type 2 diabetes mellitus with hyperglycemia (principal); N17.9 Acute kidney failure, unspecified; E11.22 Type 2 diabetes mellitus with diabetic chronic kidney disease; N18.4 Chronic kidney disease, stage 4 (severe); T38.3X6A Underdosing of insulin and oral hypoglycemic [antidiabetic] drugs, initial encounter; Z91.138 Patient's unintentional underdosing of medication regimen for other reason; Y92.9 Unspecified place or not applicable; E86.0 Dehydration; F17.210 Nicotine dependence, cigarettes, uncomplicated; J45.909 Unspecified asthma, uncomplicated; K21.9 Gastro-esophageal reflux disease without esophagitis; Z20.822 Contact with and (suspected) exposure to COVID-19; I12.9 Hypertensive chronic kidney disease with stage 1 through stage 4 chronic kidney disease, or unspecified chronic kidney disease; Z71.6 Tobacco abuse counseling; Z79.4 Long term (current) use of insulin; Z91.14 Patient's other noncompliance with medication regimen; Z79.82 Long term (current) use of aspirin; Z79.899 Other long term (current) drug therapy
CPT/HCPCS: 36415; 80048; 80076; 82009; 82947; 83036; 85025; 87635; 93005; 96372; 96374; 96375; 99285; J2405

== ENCOUNTER 2021-12-31 12:47 | Outpatient (REF) | payer MEDICAID, SELFPAY ==
[2021-12-31 14:49] LABS: Alanine Aminotransferase 38 U/L (0-40); Albumin Level 4.2 g/dL (3.5-5.0); Alkaline Phosphatase 144 U/L (39-117); Anion Gap 12 (12-20); Aspartate Amino Transferase 25 U/L (5-37); Bilirubin Total 0.6 mg/dL (0.0-1.0); Blood Urea Nitrogen 18 mg/dL (9-16); Calcium 9.7 mg/dL (8.4-10.2); Carbon Dioxide 24 mmol/L (22-29); Chloride 108 mmol/L (96-108); Estimated Glomerular Filt Rate > 60; Glucose Random 199 mg/dL (60-115); Potassium 4.3 mmol/L (3.3-5.1); Sodium 140 mmol/L (135-145)
[2021-12-31 15:00] LABS: Hemoglobin 13.3 g/dl (14.0-18.0); Mean Corpuscular HGB Conc 33.3 g/dl (31.0-36.0); Mean Corpuscular Hemoglobin 28.1 pg (27.0-33.0); Mean Corpuscular Volume 84.6 fL (80.0-98.0); Platelet Count 131 X10*3/uL (160-400); Red Blood Count 4.73 X10*6/uL (4.60-5.80); Red Cell Distribution Width 14.3 % (11.0-16.0); White Blood Count 7.2 X10*3/uL (4.8-10.8)
== END 2021-12-31 12:48 | disposition home or self-care (01) ==
LOC: HO.LAB 12:47
PROVIDERS: PCP Internal Medicine; Referring Provider Internal Medicine; Visit Provider Nurse Practitioner Family
DX: K21.9 Gastro-esophageal reflux disease without esophagitis (principal); E11.9 Type 2 diabetes mellitus without complications
CPT/HCPCS: 36415; 80053; 85027; 99202

== ENCOUNTER → 2022-01-06 10:44 | Outpatient (REF) | payer MEDICAID, SELFPAY | LOC: HO.SL 10:44 | PROVIDERS: PCP Internal Medicine; Visit Provider Internal Medicine | DX: G47.33 Obstructive sleep apnea (adult) (pediatric) (principal) | CPT/HCPCS: 95806 ==

== ENCOUNTER 2022-08-26 11:44 | Outpatient (REF) | payer MEDICAID, SELFPAY ==
--- NOTE | ~2022-08-26 | XR_ITS ---
EXAMINATION: XR KNEE, LEFT CLINICAL INFORMATION: Chronic pain. COMPARISON: Radiograph of the left knee 01/23/2019. TECHNIQUE: Four views of the left knee. FINDINGS: No acute fractures or malalignment. Mild tricompartmental joint space narrowing with subcortical sclerosis and small bony productive changes, similar to slightly increase. No erosions. No abnormal soft tissue calcifications. No joint effusion. XR/XR knee LT 4V IMPRESSION: 1. No acute fractures or malalignment. 2. Mild tricompartmental degenerative osteoarthritis.
--- NOTE | ~2022-08-26 | XR_ITS ---
EXAMINATION: XR LUMBOSACRAL SPINE WITH OBLIQUES CLINICAL INFORMATION: Pain. COMPARISON: Radiograph of the lumbar spine 12/29/2017. TECHNIQUE: AP, both oblique, and lateral views of the lumbar spine. Lateral view of the lumbosacral junction. FINDINGS: No acute compression deformity or subluxation. Mild disc height loss and facet arthropathy at L4-L5 and L5-S1, not significantly changed. Small multilevel anterior osteophytes. SI joints are symmetric. Atherosclerotic disease of the abdominal aorta. XR/XR lumbar spine 4V min IMPRESSION: 1. No acute compression deformity or subluxation. 2. Mild lumbar spondylosis.
== END 2022-08-26 11:45 | disposition home or self-care (01) ==
LOC: HO.XRAY 11:44
PROVIDERS: PCP Internal Medicine; Visit Provider Internal Medicine
DX: M54.50 Low back pain, unspecified (principal); G89.29 Other chronic pain; M25.562 Pain in left knee
CPT/HCPCS: 72110; 73564

== ENCOUNTER 2024-07-08 15:44 | Outpatient (REF) | payer MEDICAID, SELFPAY ==
[2024-07-08 17:35] LABS: Anion Gap 12 (12-20); Blood Urea Nitrogen 15 mg/dL (9-16); Carbon Dioxide 26 mmol/L (22-29); Chloride 108 mmol/L (96-108); Estimated Glomerular Filt Rate > 60; Glucose Random 96 mg/dL (60-115); Potassium 3.8 mmol/L (3.3-5.1); Sodium 142 mmol/L (135-145)
== END 2024-07-08 15:45 | disposition home or self-care (01) ==
LOC: HO.HHCL 15:44
PROVIDERS: Visit Provider Internal Medicine
DX: M62.838 Other muscle spasm (principal); I10 Essential (primary) hypertension
CPT/HCPCS: 36415; 80048

== ENCOUNTER 2024-09-12 12:17 | Outpatient (REF) | payer MEDICAID, SELFPAY ==
[2024-09-12 13:30] LABS: Cholesterol 91 mg/dL (<200); HDL Cholesterol 40 mg/dL (>40); LDL Cholesterol Calculated 46 mg/dL (<100); Triglycerides 27 mg/dL (<150); Uric Acid 5.1 mg/dL (3.4-7.0)
[2024-09-12 13:41] LABS: Creatinine Urine 148.06 mg/dL; Microalbum/Creatinine Ratio Ur 16.8 ug/mg cr (<30)
[2024-09-12 13:58] LABS: Reflex LDLD? No
== END 2024-09-12 12:18 | disposition home or self-care (01) ==
LOC: HO.HHCL 12:17
PROVIDERS: Visit Provider Internal Medicine
DX: E11.9 Type 2 diabetes mellitus without complications (principal); Z79.4 Long term (current) use of insulin
CPT/HCPCS: 36415; 80061; 82043; 82570; 84550